=== PATIENT | male | born 1995 | race Two or more races ===

== ENCOUNTER 2021-05-27 09:45 | Outpatient (RCR) | payer OTHER, SELFPAY ==
--- NOTE | 2021-05-27 09:00 | BH.SGPN.GN ---
Behaviors/Verbalizations/Mental Status: []Client alert and oriented, casually dressed and groomed. Eye contact good. Motor activity appropriate. Speech within normal limits. Affect congruent, mood euthymic. Thoughts linear, logical, no signs of hallucinations or delusions. Reviewed client?s symptom tracker, no risk for suicidal ideation, plan, or intent as of 05/27/21 Client Response/Progress/Benefit: []Client responded well to session, receptive to feedback. First day of IOP tx and client reports feeling eager and hopeful. Client shared he came to IOP due to anxiety, depression, and sleep issues. Peers gave client support and advice for the program. Client stated he hopes to gain coping skills to help him better manage his symptoms. Client would also like to explore medication options as well. Appeared to benefit from connecting with peers and identifying treatment goals. Will continue IOP tx to prevent decompensation, improve functioning, and increase knowledge of healthy coping skills. Narrative Note: []
--- NOTE | 2021-05-27 09:50 | BH.COMM_ITS ---
Communication Note - Communication with Client Communication Note: Met with patient to complete initial paperwork. No sig nificant changes since pre-admission assessment. Completed [place] [facility]icide Screening. Low risk. Denies suicidal ideations, plan, or intent in the past 4 weeks. Passive thoughts of are present. Discussed case with Dr. Rodarte with plan to admit to [facility] level of care with initial dx of MDD F33.2
--- NOTE | 2021-05-27 10:05 | BH.SGPN.GN ---
Behaviors/Verbalizations/Mental Status: []Eye contact is good. Motor activity is appropriate. Appearance is neat. Speech is Appropriate. Mood is anxious. Affect is constricted. Thoughts are linear and logical. No evidence of psychosis. Client Response/Progress/Benefit: []Pt was an active participant in group discussion AEB taking notes and providing input throughout. Attentive during psychoeducation reviewing internal and external obstacles and provided examples throughout. Participated in the reflection activity in which clients dejuan pictures depicting their current and desired reality and shared with the group. Pt stated [place] starting to feel hopeful because taking steps to move to an area with more support. Reported desired reality is to be successful with a career and surround self with healthy supports. Benefited from group by increasing current awareness and expectations for progress. Pt to continue IOP to stabilize moods, improve daily functioning and prevent decompensation. Narrative Note: []
--- NOTE | 2021-05-27 10:10 | BH.SGPN.GN ---
Behaviors/Verbalizations/Mental Status: [] Eye contact is good. Motor activity is appropriate. Appearance is casual. Speech is Appropriate. Mood is anxious. Affect is congruent. Thoughts are linear and logical. No evidence of psychosis. Client Response/Progress/Benefit: [] Pt was an active participant in group discussion and activity. Attentive during psychoeducation. Provided appropriate feedback and insight. Pt identified obstacles that have prevented them from obtaining desired reality being his perspectives, poor self-esteem, and financial stress. Identified strategies to promote emotional wellness and overcome obstacles which included; finding healthy support and finding things that make me laugh. Benefited from identifying obstacles in pt's path to mental wellness and developing strategies to minimize the impact of these obstacles. Will continue in IOP to prevent decompensation, increase healthy coping, and maintain safety. Narrative Note: []
--- NOTE | 2021-05-28 09:03 | BH.SGPN.GN ---
Behaviors/Verbalizations/Mental Status: []Client alert and oriented, casually dressed and groomed. Eye contact good. Motor activity appropriate. Speech within normal limits. Affect congruent, mood anxious, euthymic. Thoughts linear, logical, no signs of hallucinations or delusions. Reviewed client?s symptom tracker, no risk for suicidal ideation, plan, or intent as of 05/28/21. Client Response/Progress/Benefit: []Client receptive to session, attentive and willing to participate throughout. Client reports feeling ?encouraged but anxious this morning. Shared that he will be moving to [place] this weekend to live with his mother and stepfather for two months, which he is excited but anxious about. Discussed that this will be a positive change for him as he feels lonely and isolated in his current living situation. Shared that [place] it difficult to develop new, healthy, friendships. Discussed lack of support as a primary stressor at this time, sharing that he only has one close friend and often feels others ?use? him. Receptive of discussion on importance of quality of supports over quantity. Identified using skills of reaching out to his healthy support person when feel frustrated and lonely yesterday. Appeared to benefit from supportive group environment and identifying use of healthy skills. Recommended continued IOP tx to improve mood stability, reduce unhealthy coping behaviors, as well as prevent decompensation. Narrative Note: []
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
[2021-05-28 11:57] VITALS: BP 132/89; PULSE 77
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
--- NOTE | 2021-05-28 12:47 | BH.DR.ITP ---
Initial Treatment Plan Patient Information Visit Information: ADMISSION DATE: EXPECTED LOS: 4-6 weeks Problems/Symptoms Problem #1:: Depression Symptom:: Sadness, hopelessness, worthlessness, anhedonia, biological disruption of sleep, low energy, variable concentration, passive thoughts of , recent passive suicidal ideation. Problem #2:: Anxiety Symptom:: Worry, rumination, panic attacks, avoidance
--- NOTE | 2021-05-29 11:43 | BH.MTP_ITS ---
[facility] Plan - Patient Information Program Physician:: Dr. Yuliya Rodarte Primary Therapist:: FRANCIS Hancock - Psychiatric Diagnoses Psychiatric Diagnoses:: 1. 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 2. rule out psychosis secondary to drug use. 3. Generalized anxiety disorder. 4. Marijuana use disorder Diagnosis Code(s):: F 33.3 - Estimated LOS Estimated LOS (in weeks):: 6 Problem/Goal #1 - Problem/Goal #1 Stated Goal:: Client will reduce depression, feelings of hopelessness, low motivation, and passive thoughts of due to Major Depressive Disorder through the Intensive Outpatient Program. Description of Barriers: limited supports, not currently connected with providers, hx of limited tx effectiveness, hx of medication non-compliance, inconsistent biographer. Functional Impact: Patient is a 25-year-old male with a history of depression, anxiety and marijuana use disorder. Pt called the crisis center a few weeks ago due to worsening depression and was referred to the [facility] behavioral health IOP program. The patient was admitted to a psychiatric unit on November 10 - due to depression with suicidal ideation and a plan. States that he has had a history of about 6 suicide attempts in his lifetime. Most recently occurring in April when he attempted to get in his roommate?s gun safe but was stopped before doing so. Denies any access to lethal means at this time and is no longer living with his roommate. Pt reports that most of his attempts have been via nagging and that the rope has broken several times when he has tried this. He states that sometimes the rope does not break, and he just interrupts the suicide attempt. He has had 3 or 4 suicide attempts this year in about 6 suicide attempts total in his lifetime. But the patient states that he is not good with numbers or dates. Denies any active SI, plan, or intent at this time. Is future oriented, denies access to means, and is moving in with his mother who is a support this week. Reports his depression has re cently escalated to point of no longer being able to effectively complete his job and ended up quitting. Shared he has had depression off and on for many years and it has worsened in the past 6 months. His girlfriend of less than a year broke up with him in November 2020 and his father 2 years ago on July 03 and the anniversary of his is coming up. At time of admission, Pt endorsing hopelessness, worthlessness, passive thoughts of though denies SI, plan or intent, nightmares, hx of auditory hallucinations, hx of self- harming via burning self with a proof sorter (last occurring a few weeks ago), multiple panic attacks weekly, ruminating thoughts, crying spells, depressed mood, and increased irritability. Goal Relevant Strengths/Supports: willing to try various treatment approaches, open to treatment, reports desire to improve mental health - Objectives Objective #1 Stated Objective: Client will identify 3-4 sources or triggers to suicidal ideations and emotional distress to increase insight and more proactively utilize healthy coping skills to prevent crisis escalation. Interventions: Therapist will help client identify , sources, triggers and warning signs of depression and suicidal ideation. Therapist will teach client various coping skills to manage client?s symptoms and give client tangible resources to use to regulate emotions. Discharge Criteria: Goal will be complete when pt can identify 3-4 sources, triggers, and warning signs for depression, as well as implement coping skills learned when identifying these triggers. Target Date: 07/08/21 Review Date: 06/24/21 Objective #2 Stated Objective: Client will learn and utilize 2-3 healthy coping strategies to better manage depressive symptoms as shown by a reduced DSM-5 scores for depression. Interventions: Through group and individual sessions, therapist will help client identify triggers and warning signs of depression and emotional dysregulation including emotional, physical, and behavioral changes. Therapist will teach client various coping skills to manage her symptoms and give client tangible resources to use to regulate emotions. Therapist will use cognitive restructuring techniques and help client gain awareness of negative thoughts that reinforce hopelessness and depression. Therapist will provide psychoeducation on maintenance cycles and help client learn ways to break unhealthy maintenance cycles. Discharge Criteria: Client will have met this goal when she can report learning and using at least 2 coping skills to manage depressive symptoms. Additionally, client will have met this goal when her depressive symptoms have reduced on the DSM-5 scale. Target Date: 07/08/21 Review Date: 06/24/21 Problem/Goal #2 - Problem/Goal #2 Stated Goal:: Client will reduce overall frequency, intensity, and duration of the anxiety so that daily functioning is not impaired. Description of Barriers: limited supports, not currently connected with providers, hx of limited tx effectiveness, hx of medication non-compliance, inconsistent biographer. Functional Impact: Patient is a 25-year-old male with a history of depression, anxiety and marijuana use disorder. Pt called the crisis center a few weeks ago due to worsening depression and was referred to the [facility] behavioral health IOP program. The patient was admitted to a psychiatric unit on November 10 due to depression with suicidal ideation and a plan. States that he has had a history of about 6 suicide attempts in his lifetime. Most recently occurring in April when he attempted to get in his roommate?s gun safe but was stopped before doing so. Denies any access to lethal means at this time and is no longer living with his roommate. Pt reports that most of his attempts have been via nagging and that the rope has broken several times when he has tried this. He states that sometimes the rope does not break, and he just interrupts the suicide attempt. He has had 3 or 4 suicide attempts this year in about 6 suicide attempts total in his lifetime. But the patient states that he is not good with numbers or dates. Denies any active SI, plan, or intent at this time. Is future oriented, denies access to means, and is moving in with his mother who is a support this week. Reports his depression has recently escalated to point of no longer being able to effectively complete his job and ended up quitting. Shared he has had depression off and on for many years and it has worsened in the past 6 months. His girlfriend of less than a year broke up with him in November 2020 and his father 2 years ago on July 03 and the anniversary of his is coming up. At time of admission, Pt endorsing hopelessness, worthlessness, passive thoughts of though denies SI, plan or intent, nightmares, hx of auditory hallucinations, hx of self- harming via burning self with a proof sorter (last occurring a few weeks ago), multiple panic attacks weekly, ruminating thoughts, crying spells, depressed mood, and increased irritability. Goal Relevant Strengths/Supports: willing to try various treatment approaches, open to treatment, reports desire to improve mental health - Objectives Objective #1 Stated Objective: Client will identify 2-3 cognitive distortions that lead to rumination and learn 2-3 ways to manage these thoughts to better manage anxiety as shown by reduced DSM-5 scores for anxiety. Interventions: Therapist will provide education on the most common cognitive distortions and teach client the connection between thoughts, emotions, and feelings. Therapist will assist client in identifying, challenging, and replacing dysfunctional thoughts with positive, more realistic thoughts. Discharge Criteria: Client will have accomplished this goal when he can identify and challenge at least two distortions impacting overall anxiety levels. Target Date: 07/08/21 Review Date: 06/24/21 Objective #2 Stated Objective: Pt will decrease anxious symptoms AEB pt?s score on the DSM 5 cross-cutting measure improve pt?s daily functioning. Interventions: Through groups and individual therapy, pt will be provided education about anxiety?s impact on body and common physiological reaction to anxiety. Therapist will teach pt appropriate breathing techniques and build healthy coping skills to manage daily anxieties. Aid client in identifying and challenging distorted thoughts that cause rumination and increased anxiety. Discharge Criteria: Pt will have met this goal when pt?s score on the DSM 5 cross cutting measure for anxiety has been decreased and per pt?s report daily functioning has improved. Target Date: 07/08/21 Review Date: 06/24/21
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
--- NOTE | 2021-06-03 10:15 | BH.SGPN.GN ---
Behaviors/Verbalizations/Mental Status: []Eye contact is good. Motor activity is restless-got up and left for short breaks several times during session. Appearance is casual. Speech is Appropriate. Mood is anxious. Affect is constricted. Thoughts are racing. No evidence of psychosis. Client Response/Progress/Benefit: []Pt was an engaged participant in group discussions. Attentive and provided insights during psychoeducation on benefits and disadvantages of anxiety and review of different types of anxiety disorders. Completed worksheet on identifying own physical symptoms or signs of anxiety which pt reported numerous however identified most frequent as: ?my body vibrating? and increased heart rate. Benefited from increased awareness of physiological signs of anxiety as well as differences between 'normal' anxiety and anxiety disorder. Will continue IOP tx to prevent decompensation, increase emotional regulation skills, and increase impulse control. Narrative Note: []
--- NOTE | 2021-06-04 11:47 | BH.MDN ---
Multi-Disciplinary Note - Note 45-min Individual Time Started:: 09:51 Date: 06/04/21 Purpose of session/treatment goals addressed:: To gather information on client's current stressors, symptoms, triggers, and tx goals. Another goal was to build rapport. Eye Contact:: Good Motor Activity:: Appropriate Appearance:: Casual Speech:: Appropriate Mood:: Anxious Affect:: Congruent Thoughts:: Linear, Logical, Flight of ideas Staff Interventions:: rapport building, treatment planning, goal setting Client Response:: Client responded well to session, open to meeting therapist. Client shared he has been struggling to adjust to waking up earlier for group which is why he was late this morning. Reports needing to attend virtually over the next three weeks as he will not have extra money for gas until then. Client recently began a new job and will not be paid again until the . Discussed that finances are somewhat of a stressor but feels more confident in his ability to save since moving in with his mother and stepfather last week. Went on to discuss that his former living situation had been a major stressor as [place] feel [place] and had limited supports as a result. Reports recently having a dispute with his former landlord about rent money that had been a stressor earlier in the week as well but feels has since been resolved. Client explained he is now in a larger city and feels he has more available resources and potential opportunities to build a healthy support system. Shared he has been struggling with anxiety and depression for much of his life and believes his environment had contributed to maintaining these symptoms. Hopeful a new environment will help. Discussed that that at it?s worst, his depression has resulted in client attempting suicide and that shared ?I never want to get to that place again?. Most recent attempt occurred in April when he attempted to get in his roommate?s gun safe but was stopped before doing so. Denies hospitalization for this. Denies any current SI, plan, or intent. Primary current concerns include his cats whom he had to temporarily rehome until he moves out of his mother?s home and the upcoming anniversary of his father?s , 09/03. 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 Client discussed some concerns about loneliness as he does not have any plans for the hol and will likely be spending the day alone. Worked with therapist to develop a self-care plan which included going to his brother?s house to see his dog, playing video games, and spending time writing lyrics as this is something he enjoys. Risks/Concerns:: Client denies any suicidal ideations, plan, or intent as of 06/04/21. Denies any homicidal ideations. Future oriented. Progress Toward Goals/Plan:: Client still new to IOP tx so limited progress to note. Indicates finding the group environment to be a positive a supportive resource for him. Indicates his mood has improved since beginning tx last week. Client has struggled with tardiness due to difficulties with motivation and emotion regulation. Client continues to endorse mood instability, easily becoming upset when faced with new stressors, loneliness, crying spells, anxiety, and negative thinking. Client does not have outpatient mental health providers and was receptive to exploring options for post IOP care. Client will continue IOP tx to prevent decompensation, learn healthy coping skills, and improve overall functioning. Time Stopped:: 10:30
--- NOTE | 2021-06-04 11:56 | PCM.BH.PN ---
Progress Note Progress Note: History of Present Illness/Interim History: [] The patient is a 25-year-old single male with a history of depression, anxiety and marijuana use disorder who is seen in follow-up at the [facility] behavioral health IOP program. I last saw the patient 1 week ago and at that time he was prescribed Prozac 20 mg daily. He states that he has only taken the Prozac for 5 days and is tolerating it well. He states that his mood is better and he feels much less depressed than before. He feels he is really benefiting from the IOP program and is using valuable coping skills which has improved his mood. He denies any marijuana use since 6 days ago mostly secondary to not having enough money for it. He did moved to [place] few few days ago and now lives with his mother in [place] and this may have caused his mood improved because he hates [place]. 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 He plans to get a second job which she will work in the morning. He has not had any bad dreams or nightmares since the third day of the IOP program. His sleep is still about 5 to 6 hours a night though. He has plans for the future now in has not had any hallucinations he feels because he is not alone now and living with his mother. He no longer feels hopeless and only feels somewhat worthless. He denies passive thoughts of , suicidal ideation, plan for suicide, homicidal ideation, hallucinations or delusions. His panic attacks have also lessened. He denies any self-harm. Current Psychiatric Medications: [] Prozac 20 mg p.o. daily (on this for 5 or 6 days). Mental Status Examination: [] The patient is a 25-year-old male who is seen wearing a mask in a stocking cap and is casually dressed and groomed with good hygiene. He has no psychomotor agitation or retardation. He is less overinclusive today and his thought process is goal-directed and organized. Eye contact is good and speech is normal rate and rhythm and fluent with no pressure. Thought content: There is no evidence of hallucinations or delusions. There is no evidence of passive thoughts of , suicidal ideation, homicidal ideation. Reality testing is intact. Judgment is limited but improving. Impulsivity is high. Insight is limited but improving. Diagnoses: [] 1. Major depressive disorder, recurrent, severe without psychosis (F 33.2) 2. Generalized anxiety disorder 3. Marijuana use disorder 4. Cluster B traits 5. Cannot rule out history of psychosis secondary to drug use 6. Primary support issues Plan: [] The patient will continue the IOP program at [facility] as the structure, support, education, and group therapy will hopefully prevent worsening of the patient's symptoms. The patient felt safe during the interview and if it anytime he does not feel safe he will let us know or go to the emergency room. The risk, options, possible complications and side effects of medication were discussed with the patient again and he understands and accepts these. Patient agrees to increase his Prozac to 40 mg p.o. daily. He agrees to continue to try to eliminate or at least severely decreased but preferably eliminate his marijuana use due to the association with psychosis. Prescription was sent in for Prozac 40 mg p.o. daily. He will continue to follow-up with his outpatient psychiatric and medical providers.
--- NOTE | 2021-06-10 09:05 | BH.SGPN.GN ---
Behaviors/Verbalizations/Mental Status: []Client alert and oriented, casually dressed and groomed. Eye contact good. Motor activity appropriate. Speech rambling and rapid. Affect congruent, mood euthymic. Thoughts linear, logical, no signs of hallucinations or delusions. Reviewed client?s symptom tracker, no risk for suicidal ideation, plan, or intent as of 06/10/21 Client Response/Progress/Benefit: []Client responded well to session, tangential at times, but providing emotional support to peers. Client reports feeling hopeful and excited this morning. Client shared Thanksgiving was hard, but he was able to FaceTime with his best friend which made it better. Client stated he has not smoked marijuana for two weeks which is positive to help client get employment, however, client stated he did not want to stop smoking. Client shared he has more energy than usual today and he does not know why and he self-reports his functioning and mood have generally been better. Will continue to monitor mood and energy to see if this is a warning sign. Appeared to benefit from connecting with peers. Will continue IOP tx to increase mood stability, reduce the use of unhealthy coping skills, and improve daily functioning. Narrative Note: []
--- NOTE | 2021-06-10 10:15 | BH.SGPN.GN ---
Behaviors/Verbalizations/Mental Status: []Client alert and oriented, casually dressed and groomed. Eye contact good. Motor activity appropriate. Speech within normal limits. Affect congruent, mood euthymic. Thoughts linear, logical, no signs of hallucinations or delusions. Client Response/Progress/Benefit: []Client engaged participant AEB providing contributions during group discussion and listened attentively to peers. Helped group discuss the benefits of relationships as well as the potential factors maintaining unhealthy relationships. Helped group identify characteristics that can lead to unhealthy relationships which included: poor communication, disrespect, poor emotional regulation, blaming others, and substance abuse. Pt identified he struggles with enjoying personal time. Pt stated he does not like being alone. Recognizes not being alone could lead to a dependence on others. Appeared to benefit from increasing awareness of the impact unhealthy relationships can have on mental health. Pt to continue IOP to increase use of healthy coping, challenge distorted thoughts and prevent decompensation. Narrative Note: []
--- NOTE | 2021-06-10 11:15 | BH.SGPN.GN ---
Behaviors/Verbalizations/Mental Status: [] Client alert and oriented, casually dressed and groomed. Eye contact good. Motor activity appropriate, at times appearing somewhat restless. Speech within normal limits. Affect congruent, mood euthymic. Thoughts linear, logical, no signs of hallucinations or delusions. Client Response/Progress/Benefit: [] Client receptive of session AED taking notes and providing input throughout. Attentive during psychoeducation about characteristics of healthy, unhealthy, and abusive relationships. Pt identified that he has been working to improve his own self-care as he often struggles with loneliness and depending on others to entertain him. Reflected upon relationship strengths which pt identified as respecting others and making a conscious effort to consistently communicate his needs and frustrations with supports. Appeared to benefit from reflecting upon personal relationship strengths, as well as brainstorming strategies to build healthier relationships. Pt to continue IOP tx to maintain mood stability, continue to promote healthy coping skill application and self-care application, as well as prevent decompensation. Narrative Note: []
== END 2021-06-10 23:59 ==
LOC: BHIOP 09:45
PROVIDERS: Referring Provider Psychiatry & Neurology Psychiatry; Visit Provider Psychiatry & Neurology Psychiatry
DX: F33.3 Major depressive disorder, recurrent, severe with psychotic symptoms (principal); F41.1 Generalized anxiety disorder; F12.90 Cannabis use, unspecified, uncomplicated; Z79.899 Other long term (current) drug therapy; Z91.51 Personal history of suicidal behavior; F17.210 Nicotine dependence, cigarettes, uncomplicated
CPT/HCPCS: 90792; 99213; H2012; H2020; S9480; T1002; 90834

== ENCOUNTER 2021-06-11 09:00 | Outpatient (RCR) | payer OTHER, SELFPAY ==
[2021-06-11 00:41] VITALS: BP 132/89; PULSE 77
--- NOTE | 2021-06-11 10:12 | BH.SGPN.GN ---
Behaviors/Verbalizations/Mental Status: []Eye contact is good. Motor activity is appropriate. Appearance is casual and grooming attended to. Speech is Appropriate. Mood is anxious and euthymic. Affect is congruent. Thoughts are linear and logical. No evidence of psychosis Client Response/Progress/Benefit: []Pt was an engaged participant in group discussion, providing input and was attentive during psychoeducation. Participated in short activity about automatic thoughts and shared that current environment and interests can impact automatic thoughts. Group was primarily educational; therapist introduced and gave examples of the most common cognitive distortions. Benefited from education and increased awareness of cognitive distortions and the role that they play our behaviors and emotions. Pt reported connecting with distortions such as emotional reasoning, personalization, overgeneralizing, and mental filter. Pt shared personal distortion he struggles with most as disqualifying positives when already in a negative mindset. Recognized the impact this distortion has had on his own emotion regulation. Will continue IOP tx to challenge distortions that reinforce depression and anxiety while increasing ability to function, and improving internal coping skills. Narrative Note: []
--- NOTE | 2021-06-11 11:14 | BH.MDN ---
Multi-Disciplinary Note - Note 30-min Individual Time Started:: 09:30 Date: 06/11/21 Purpose of session/treatment goals addressed:: Purpose of session is to address tx goals, current stressors, and follow-up with homework from last session. Additional goal was to begin connecting client with outpatient counseling and psychiatry resources. Eye Contact:: Good Motor Activity:: Appropriate Appearance:: Casual Speech:: Appropriate Mood:: Euthymic, Anxious Affect:: Full Thoughts:: Linear, Logical, Flight of ideas, No evidence of hallucinations/delusions noted Staff Interventions:: motivational interviewing, CBT techniques, strengths perspective, goal setting Client Response:: Client responded well to session, open to meeting therapist. Client shared he had intended to arrive in time for his appointment originally scheduled for 8:30am this morning and even stayed with a friend who lives closer to the hospital. Noted however struggling with sleep and did not wake up when his alarm had gone off. Client discussed struggling to adjust to his new work hours, as he does not typically get home until after 11pm and is unable to go to sleep without having time to ?wind down? once home. Went on to indicate that he has not enjoyed his new job and is pursuing alternative employment options. Expressed difficulties in finding jobs he enjoys that also pay enough for client to meet his financial obligations. Identified not having his high school diploma or GED as a major contributing factor. Reports a desire to obtain his GED but is unsure of how to go about doing so, concerned about potential cost, and doubts his ability. Receptive of challenging self-doubt statements and worked with therapist to identify possible long-term benefits in obtaining a GED. Willing to look into possible programs in his area that offer GED services. Went on to share he is otherwise feeling positive and has been able to spend time with healthy supports which always improves his mood. Self admits that his supports are his primary means of coping and that he often feels lonely and more depressed when he is not at his best friend?s house. Expressed not completing his homework from last week to spend time writing music or comedy and indicates he often avoids independent activities. Receptive of discussion on importance of developing healthy internal coping skills and reports a desire to ?learn to cope better? to avoid a relapse in depressive sx. Receptive of again challenging himself to spend time writing at least once in the next week. Identified an additional goal as checking out a local comedy club to refamiliarize himself with the stand-up environment and determine if this is a hobby he would like to more actively pursue. Risks/Concerns:: None noted. CLient denies any SI/HI, plan, or intent on this date, 06/11/21. Future oriented and protective factors noted. Progress Toward Goals/Plan:: Client limited progress to note. Indicates overall feeling more positive and less depressed; however, this appears to be more situationally based and less a result of skill application. Continues to struggle when alone and reports limited engagement in self-care activities. Client receptive of creating small self-care goal to write at least once in the next week. Additionally, identified frustrations with current employment which has resulted in feeling more irritable after work. Client reports looking for another job but that he would like to obtain his GED in order to further expand potential employment options. Client does not have outpatient mental health providers and was given options for local agencies he can receive post IOP care from, will contact and schedule an appointment this week. Client will continue IOP tx to prevent decompensation, learn and begin more regularly implementing healthy coping skills, as well as improve overall functioning. Time Stopped:: 10:03
--- NOTE | 2021-06-11 11:20 | BH.SGPN.GN ---
Behaviors/Verbalizations/Mental Status: []Eye contact is good. Motor activity is appropriate. Appearance is casual. Speech is Appropriate. Mood is euthymic. Affect is congruent. Thoughts are linear and logical. No evidence of psychosis. Client Response/Progress/Benefit: []Pt was an engaged participant AEB pt providing input throughout group discussion and activity. Attentive during psychoeducation on cognitive distortions not discussed in previous group. Pt was an actively engaged participant in Cognitive Distortions Jeopardy, providing input and suggestions to small group. Utilized notes from psychoeducation on cognitive distortions to assist peers in correctly answering questions. Experiential activity was beneficial as it provided a way for patient to review notes and handouts during psychoeducation to answer questions for the game. Will continue in IOP tx to improve healthy coping, challenge negative thought patterns and prevent decompensation.
--- NOTE | 2021-06-17 09:05 | BH.SGPN.GN ---
Behaviors/Verbalizations/Mental Status: []Client alert and oriented, casually dressed and groomed. Eye contact good. Motor activity appropriate. Speech rapid, rambling. Affect congruent, mood euthymic. Flight of ideas and tangential thinking, no signs of hallucinations or delusions. Reviewed client?s symptom tracker, no risk for suicidal ideation, plan, or intent as of 06/17/21 Client Response/Progress/Benefit: []Client responded well to session, however, client struggled to stay on topic and be appropriate at times. Client reports feeling excited and hopeful this morning as client has so much to look forward to. Client shared movies and superheroes have always helped client cope, and there is a new movie coming out next week. Client also will get to have his dog live with him again at client's mother's house. When asked, client denied any stressors, however, went on to share that earlier this week he was really depressed. Client appears to struggle with identifying specific triggers to his mood instability. Appeared to benefit from identifying things he is excited about and reflecting on healthy supports in his life. Progress noted in client's report of no suicidal ideations, however, client's mood appears to be dependent on external situations which could impact long-term progress. Will continue IOP tx to increase insight, improve emotional regulation skills, and increase daily functioning. Narrative Note: []
--- NOTE | 2021-06-17 10:15 | BH.SGPN.GN ---
Behaviors/Verbalizations/Mental Status: []Client alert and oriented, casually dressed, hygiene appeared to be tended to. Eye contact good. Motor activity appropriate. Speech within normal limits. Affect full, mood euthymic. Thoughts linear, logical, no signs of hallucinations or delusions. Client Response/Progress/Benefit: []Client responded well to session, attentive and engaged throughout discussion and activity. The group identified benefits of failure as: learning new skills, gaining perspective, and helping individuals learn to succeed. Client stated if you keep telling yourself you are a failure you will tell yourself what's the point, you're going to fall down anyway. Client recognizes this thought patterns keeps him from attempting to fix or learn from his failures and keeps him hopeless and stuck. 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 Client stated when previous jobs did not support his mental health he realized quitting wasn't a failure it was a healthier decision. Client appeared to benefit from gaining awareness of the impact fear of failure can have on one?s mental health and wellbeing. Will continue IOP to continue the use of healthy coping skills, challenge distorted thoughts and prevent decompensation. Narrative Note: []
--- NOTE | 2021-06-17 11:20 | BH.SGPN.GN ---
Behaviors/Verbalizations/Mental Status: []Client alert and oriented, casually dressed and groomed. Eye contact good. Motor activity appropriate. Speech within normal limits, at times struggling with making inappropriate statements. Affect congruent, mood euthymic. Thoughts linear, logical, no signs of hallucinations or delusions. Client Response/Progress/Benefit: [] Client responded well to session, engaged in the experiential activity and attentive throughout group processing. 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 Client able to identify thoughts and behaviors that reinforce personal fear of failure which included: fear of being laughed at, feeling it was not the right time or environment, unhealthy supports, and negative self-talk. Client attentive during discussion of the different strategies to help overcome fear of failure. Identified wanting to work on changing his fear of failing by starting with small goals and beginning to utilize daily positive affirmations. Appeared to benefit from gaining self-awareness and learning strategies to overcome fear of failure. At times struggles with consistently implementing skills learned outside the group environment. Client will continue IOP tx to improve emotion regulation skills, reduce depression, and increase mood stability. Narrative Note: []
--- NOTE | 2021-06-18 09:09 | BH.COMM ---
Communication Note - Communication with Client Communication Note: Client was scheduled to meet with therapist this date however was unable to due to illness. Recommended to take a rapid COVID-19 test and follow-up.
--- NOTE | 2021-06-18 11:40 | BH.COMM_ITS ---
Communication Note - Communication with Client Communication Note: This nurse talked with Dr. Rodarte about client's reported frequent nightmares and night time urinary incontinence while sleeping. Dr. Rodarte gave a verbal order for Prazosin 1mg daily at bedtime, 30 tablets, 0 refills and client may take 2mg at bedtime if 1mg not effective. Discussed new prescription with client and new prescription called into [facility] on [facility] [facility] in [place] per client's request.
--- NOTE | 2021-06-24 14:15 | BH.MDN_ITS ---
Multi-Disciplinary Note - Note 45-min Individual Time Started:: 09:18 Date: 06/24/21 Purpose of session/treatment goals addressed:: To review treatment progress and discuss areas of continued focus moving forward. Another goal was to create small goals for continuing to improve internal coping skills and discuss aftercare planning. Eye Contact:: Good Motor Activity:: Appropriate Appearance:: Casual Speech:: Appropriate Mood:: Euthymic Affect:: Congruent Thoughts:: Linear, Logical, Other - at times becoming distrated or off topic, but easily redirected or returned to topic at hand, No evidence of hallucinations/delusions noted Staff Interventions:: thought challenging, motivational interviewing, discharge planning - provided resources for outpatient counseling and aided pt in scheduling intake appointment, strengths perspective, treatment planning - discussed goals for remaining time in tx, reviewed DSM-5, taught coping skills - worked with client to create coping plan for upcoming trauma anniversary date Client Response:: Client responded well to session, open to meeting with therapist and engaged throughout. Client shared he feels overall ?a lot better? than he had at the start of the IOP program. Discussed with therapist areas in which he has seen personal progress which his mental health. This included feeling ?more content in the day-to-day?, having a ?better attitude?, feeling more comfortable with himself and less irritable with others. 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 Has not followed through with resources provided on obtaining a GED, though shared he is still interested in doing so. Discussed that he believes starting psych meds, changing his living environment, and learning more about healthy coping has helped in improving his overall mood and mental health symptoms. Shared that he recently purchased a ?calm? journal and has begun using writing as a more co nsistent outlet, often writing lyrics, and is challenging himself to continue to pursue this passion despite at times not feeling confident in his abilities. Shared his best friend has also been a major support but that client worries he overly relies on his best friend and would like to continue to work on developing internal coping skills and feeling more comfortable with being alone. 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 Expressed that using his time for something constructive that he enjoys may aid in feeling more positive about alone time rather than feeling lonely. Shared he often spends much of his time alone on video games, which he enjoys, but acknowledges prevents him from stepping out of his comfort zone or working on other goals he has set for himself. Went on to discuss a concern regarding the anniversary of his father?s next Wednesday. Shared this is often an emotionally hard day and that he has already reached out to his best friend to stay with him that night. Expressed that he will however be alone during the day and is unsure of what to do to cope during that time outside of playing video games. Receptive of discussion on alternative activities and healthy skills he can use to cope throughout the day. Shared he could read, write, or reach out to other available supports ? such as his mother. Shared plans to attend IOP tx the day before to review his coping plan and receive additional support. Risks/Concerns:: None noted, denies any suicidal ideation, plan, or intent as of this date, 06/24/21. Progress Toward Goals/Plan:: Client continues to make some progress in treatment AEB reduction in DSM-5 scores, as well as client self-report. Client indicates that he feels more positive and stable since beginning the program, has been more actively using supports, and making progress in beginning to engage in independent self-care activities as well. Client expressed ongoing issues with feeling comfortable being alone and struggles to use his skills during those times, often seeking distraction or external support. Shared wanting to work on improving in this area. Additionally struggles with self-motivating as he often says he has several goals for himself but struggles with taking steps to initiate these goals. This has impeded his ability to schedule outpatient counseling or pursue a GED on his own. Able to begin processing this with this therapist and willing to work on small goal setting. Client attendance has also bee variable and when in attendance struggles with maintaining focus at times which may also present as a barrier to progress. Will continue IOP tx to prevent decompensation, increase application of healthy coping skills, as well as maintain stability throughout the upcoming trauma anniversary next week. Time Stopped:: 09:57
--- NOTE | 2021-06-24 14:19 | BH.TPR ---
Treatment Plan Review Date of Admission:: 05/27/21 Date of Treatment Plan Review:: 06/25/21 Admitting Diagnoses:: 1. Major depressive disorder, recurrent, severe without psychosis (F 33.2). 2. Generalized anxiety disorder. 3. Marijuana use disorder. 4. Cluster B traits Current Diagnoses:: 1. Major depressive disorder, recurrent, severe without psychosis (F 33.2). 2. Generalized anxiety disorder. 3. Marijuana use disorder. 4. Cluster B traits Patient's Response to Treatment:: Pt has responded well to group counseling environment and reports feeling the IOP program has been beneficial. Struggles at times with consistently attending and has missed several sessions or left early due to illness, or arrived late due to oversleeping. Client, however, is mostly engaged when present. He does at times struggle with becoming off-topic or making inappropriate comments in the group setting. Reports that he is utilizing some of the skills learned in IOP outside group as well, though struggles with consistency. Remains medication compliant. Status of Current Problems and Symptoms: Pt completed his 4 week DSM cross-cutting outcome scales which show an overall symptom reduction of 73% from admission. His scores on the depression scale reduced by 20% and is an are of continued focus. However scores for anger reduced by 100%, tonia/emotion regulation scores have reduced by 83%, anxiety reduced by 82%, symptoms associated with hearing auditory hallucinations reduced by 100%, and SI frequency has also reduced by 100%. Reports that new medication, moving out of the [facility] and in with his mother in [place], as well as finding a new job have aided in reducing several of his external stressors. Reports increased engagement in activities he enjoys such as writing song lyrics. Pt does having the upcoming anniversary of his father?s next week and is working to create a safe environment and healthy coping plan in preparation for this. Problem #1 Problem Name:: depression, hopelessness, motivation, passive thoughts of Status of Goals:: Per pt report he feels more capable of managing depressive symptoms and denies experiencing any suicidal ideation since prior to IOP admission. Since admission self harming urges have decreased by 100% per DSM-5 scores. Reports depression has reduced as well which is consistent with DSM scores showing a reduction of 20%. Continues to struggle with identifying specific warning signs and triggers which may present as a barrier to maintaining gains. Doing well to use writing and reaching out to supports to better manage symptoms of depression as well. Team Recommendations:: Continue with current plan with specific focus on better identifying triggers. Problem #2 Problem Name:: Anxiety Status of Goals:: Pt is able to identify calming skills learned in group however struggles with implementing these skills consistently when in overwhelming situations. Anxiety is often based on external stressors. However pt has reported an improved ability to manage anxiety without escalating to point of crisis. Can identify stress as a trigger. Continues to struggle with identifying specific distortions contributing to anxious thought patterns. DSM-5 scores indicate an overall reduction in anxiety of 86%. Team Recommendations:: Continue with current plan with specific focus on establishing concrete distress tolerance skills as well as better identifying triggers.
--- NOTE | 2021-06-25 09:00 | BH.SGPN.GN ---
Behaviors/Verbalizations/Mental Status: []Eye contact is good. Motor activity is appropriate. Appearance is casual. Speech is Appropriate. Mood is euthymic and hopeful. Affect is congruent. Thoughts are linear and logical. No evidence of psychosis. Reviewed daily check in sheet and no reports of suicidal ideations or intent. Client Response/Progress/Benefit: []Pt responded well to session AEB pt listening attentively to peers and sharing thoughts with group. Pt reported mental health positive as sleeping better. Pt reported his week has been really good. Pt stated feeling excited about tomorrow because a new movie is released that he wants to see. Pt identified additional mental health positive as feeling more stable and able to manage stressors more effectively. Pt identified current stressor is trying to find a new apartment. Pt stated he is excited to move to an apartment with a friend but stressed about all the steps it takes to move. Progress noted with pt reporting improved mood stability and manage stressors more effectively. pt to continue IOP to stabilize moods, continue use of healthy coping skills and prevent decompensation. Narrative Note: []
--- NOTE | 2021-06-25 10:15 | BH.SGPN.GN ---
Behaviors/Verbalizations/Mental Status: []Client alert and oriented, casually dressed and groomed. Eye contact fair. Motor activity appropriate. Speech within normal limits. Affect congruent, mood euthymic. Thoughts linear, logical, no signs of hallucinations or delusions. Client Response/Progress/Benefit: []Client engaged in session AEB taking notes, contributing to discussion, and providing examples throughout. Client assisted group with identifying benefits of setting boundaries such as ?knowing when something is harming you,? less anxiety and stress, and better quality of life. Client also identified personal barriers to setting boundaries such as not knowing one?s limits or pushing past one?s limits before setting boundaries. Listened during psychoeducation on different types of boundaries. Client seemed to benefit from increased awareness of how boundaries impact mental health and the different types of boundaries there are. Progress noted in client?s self-report of improved mood over the past two weeks. Will continue IOP tx increase knowledge of healthy coping skills and improve overall functioning. Narrative Note: []
--- NOTE | 2021-06-25 11:55 | PCM.BH.PN_ITS ---
Progress Note Progress Note: History of Present Illness/Interim History: [] The patient is a 25-year-old male with a history of depression and anxiety who is seen in follow- up at the [facility] behavioral health IOP program. I last saw the patient 3 weeks ago and at that time his Prozac was increased to 40 mg p.o. daily. He is tolerating this medication well and feels that he is making really good progress in the IOP program due in part to the medications and in part to the skills he is learning. He states that he feels he is doing great. His mood is much, much better. He feels he is now able to use the skills he is learning to help him manage his mental health better. Sleep is now up to 8 or 9 hours a night but the patient states that he never feels rested after his sleep. His nightmares are much less than they were before. He feels that he does snore. He no longer feels hopeless and denies passive thoughts of , suicidal ideation, plan for suicide, homicidal ideation, hallucinations or delusions. He is not having panic attacks now. He denies any self-harm. Current Psychiatric Medications: [] Prozac 40 mg p.o. daily (on this dose for 3 weeks); prazosin 1 mg nightly (takes it only once in a while). Mental Status Examination: [] The patient is a 25-year-old male who is seen wearing a mask due to the pandemic and is casually dressed and groomed with good hygiene. He has no psychomotor agitation or retardation. Eye contact is good and speech is normal rate and rhythm and fluent with no pressure. Thought process is organized and goal-directed. Thought content: There is no evidence of thoughts of , suicidal ideation, homicidal ideation, hallucinations or delusions. The patient is feeling optimistic for the future. His mood is euthymic. Judgment is intact. Impulsivity is moderate. Insight is good. Diagnoses: [] 1. Major depressive disorder, recurrent, severe without psychosis (resolving) 2. Generalized anxiety disorder 3. Marijuana use disorder 4. Cluster B traits 5. Primary support issues Plan: [] The patient will continue the IOP program at [facility] as the structure, support, education and group therapy will hopefully prevent worsening of the patient's symptoms. He felt safe during the interview and if it anytime he does not feel safe he agrees to let us know or go to the emergency room. The risks, options, possible complications and side effects of the medications were again discussed with the patient and he understands and accepts these. No medication changes were made today as the patient is doing well. He will continue to try to eliminate his marijuana use completely. He will continue to follow-up with his outpatient medical and psychiatric providers. S polysomnogram was ordered to rule out sleep apnea as the reason for him never feeling rested in the morning despite getting adequate sleep now.
--- NOTE | 2021-07-02 11:45 | BH.COMM ---
Communication Note - Communication with Client Communication Note: Client scheduled to attend group on this date however called to cancel due to a scheduling conflict. Client is scheduled to meet with individual therapist during scheduled group attendance tomorrow; however, client canceled for tomorrow. Will meet with client during next scheduled attendance date, 07/08/21.
--- NOTE | 2021-07-08 09:05 | BH.SGPN.GN ---
Behaviors/Verbalizations/Mental Status: []Eye contact is good. Motor activity is appropriate. Appearance is casual. Speech is Appropriate. Mood is euthymic. Affect is congruent. Thoughts are linear and logical. No evidence of psychosis. Reviewed daily check in sheet and no reports of suicidal ideations or intent. Client Response/Progress/Benefit: []Pt responded well to session AEB listening attentively to peers and sharing thoughts with group. Reported her current emotion is ?hopeful and encouraged? as he continues to make progress in managing his mental health sx as well as accomplishing several personal goals for himself. Discussed feeling proud he was able to secure independent housing and will be moving into his own apartment this week. Went on to note that he had additionally coped with several stressors over the holiday weekend without reaching point of crisis. Discussed using calming skills, looking through his binder at the materials he?s learned in the IOP program, as well as having healthy distractions. Shared he did well to cope with the anniversary of his father?s on Del[place] by using these skills and creating plans with friends for later that evening rather than isolating as he has on that date in the past. Went on to share not wanting to discharge from the IOP program this week but feeling ready to. Appeared to benefit from supportive group environment and reflecting on areas of personal progress. Pt to discharge from IOP tx tomorrow and is encouraged to continue with outpatient counseling to continue to promote healthy skill application, maintain mood stability, and prevent decompensation. Narrative Note: []
--- NOTE | 2021-07-08 11:47 | BH.MDN ---
Multi-Disciplinary Note - Note 30-min Individual Time Started:: 10:34 Date: 07/08/21 Purpose of session/treatment goals addressed:: Reviewed progress on treatment plan in IOP and discussed strategies for maintaining gains. Finalized aftercare plans and reviewed outcome measurement. Eye Contact:: Good Motor Activity:: Appropriate Appearance:: Casual Speech:: Appropriate Mood:: Euthymic Affect:: Full Thoughts:: Linear, Logical, No evidence of hallucinations/delusions noted Staff Interventions:: discharge planning, strengths perspective, reviewed DSM-5, other - reviewed strategies for maintaining treatment gains and discussed the importance of continued counseling on an outpatient basis Client Response:: Client receptive of session, actively engaged throughout. Discussed having a positive holiday and spending time with healthy supports. Client reports this as progress as Daysi Estrella is the anniversary of his father?s and he typically isolates and struggles with significant depressive symptoms on that date. Shared he instead spent the day cleaning, writing music, and completing his self-care routine until able to spend time with friends that afternoon. Discussed feeling proud of his ability to cope in healthy ways, especially as he had been faced with the extra stressor of his car breaking down the previous date. Client and therapist reviewed progress in IOP and on treatment plan goals. Pt was able to identify some stress management skills, healthy coping skills for depression, and calming skills for anxiety. Identified seeing progress most in his ability to cope with unexpected stressors without reaching the point of crisis or having suicidal thoughts. Denies any SI since program admission. Additionally, pt reports he has been feeling an increased sense of hope since beginning a new job and securing housing at an apartment he will move into tomorrow. According to DSM outcome measurement pt showed an overall symptom decrease of 78% since admission. Pt had some significant stressors last week and reports that he was able to utilize stress management skills as well as healthy coping skills, and reaching out to support. Reports increased awareness of the need for ongoing outpatient counseling, however has not yet followed-up with [facility] to schedule an initial assessment. Reports plans to do so this week. Pt completed the initial paperwork at [facility] and reports understanding he will no longer have psychiatry or counseling services if he does not follow-up. Risks/Concerns:: None noted. Denies any SI, plan, or intent as of this date 07/08/21. Progress Toward Goals/Plan:: Progress noted. Pt has met treatment plan goals as noted above. DSM outcome measurements show a 78% decrease in overall symptoms since admission. DSM also shows a 80% reduction in scores on depression scale, 75% reduction on score in anger scale, a 64% reduction on scores on the anxiety scales, and a 100% reduction in thoughts of actually harming self. Pt self-reports improved mood stability and stress management, reduced marijuana use, improved communication with supports, and decrease in anxiety. Reports increased awareness and insight on health coping skills. Plan is to discharge tomorrow as pt no longer meets criteria for IOP level of care. Time Stopped:: 11:02
--- NOTE | 2021-07-08 15:55 | BH.IGGP_ITS ---
Aftercare Plan - Demographics Treatment End Date:: 07/09/21 Psychiatrist:: Yuliya Gomez Psychiatrist Office #:: [phone] [facility] Therapist:: Ligia Kelly Therapist Phone #:: [phone] - Plan Details Progress/Aftercare Plan Details:: Significant improve was noted. Pt has met treatment plan goals as noted above. DSM outcome measurements show a 78% decrease in overall symptoms since admission. DSM also shows a 80% reduction in scores on depression scale, 75% reduction on score in anger scale, a 64% reduction on scores on the anxiety scales, and a 100% reduction in thoughts of actually harming self. Pt self-reports improved mood stability and stress management, increase sense of purpose, reduced marijuana use, improved communication with supports, and decrease in anxiety. Reports increased awareness and insight on health coping skills. Pt has additionally successfully obtained employment and secured independent housing while in IOP program. Plan is to discharge as pt no longer meets criteria for [facility] level of care. Strategies for Success:: 1. Opposite action! continue using this skill when you want to isolate, lash out, or avoid. 2. Self-care! Keep up with daily self-care and don?t forget to continue to do the fun things (like writing) as well as the not so fun(like paying bills) 3. Challenge distortions. Remember that thoughts are thoughts not facts. Challenge yourself to first calm down and then come back to the situation 4. Communicate with supports about the hard stuff. You are NOT a burden. 5. Continue to write! This has been such a great skill for you! 6. Remember setbacks happen, but that does not mean progress is erased. 8. Keep up with therapy and review your binder. 9. Keep working on small steps! You got this! - Appointments Appointments/Referrals to Other Services:: Client recommended to follow-up with outpatient counseling, case management, and psychiatry through [facility] in [place]. A referral has been made and client was contacted last week by the agency to schedule an initial assessment. Client reports plans to do so this week and will call this therapist to confirm upon doing so. - Medications Home Medications: Home Medications fluoxetine [Prozac] 40 mg PO DAILY 30 Days #30 cap 06/04/21 prazosin 1 mg PO QHS 06/18/21
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
== END 2021-07-09 09:59 | disposition home or self-care (01) ==
LOC: BHIOP 09:00
PROVIDERS: Referring Provider Psychiatry & Neurology Psychiatry; Visit Provider Psychiatry & Neurology Psychiatry
DX: F33.2 Major depressive disorder, recurrent severe without psychotic features (principal); F41.1 Generalized anxiety disorder; F12.90 Cannabis use, unspecified, uncomplicated; Z79.899 Other long term (current) drug therapy
CPT/HCPCS: 99213; H2012; H2020; S9480; 90832; 90834

== ENCOUNTER 2021-08-12 20:02 | Outpatient (CLI) | payer MEDICAID, SELFPAY | END 2021-08-12 23:59 | disposition home or self-care (01) | PROVIDERS: Visit Provider Internal Medicine Critical Care Medicine | DX: G47.10 Hypersomnia, unspecified (principal) | CPT/HCPCS: 95811 ==